=== PATIENT | female | born 1980 | race Caucasian/White ===

== ENCOUNTER 2017-02-06 19:16 | Emergency (ER) | payer MEDICAID, OTHER ==
--- NOTE | 2017-02-06 19:22 | EDPHY ---
H & P HPI/ROS: HPI CHIEF COMPLAINT: Abdominal pain HISTORY OF PRESENT ILLNESS: This patient very pleasant 36-year-old female, significant past medical history for asthma, she presents emergency room with abdominal pain approximately 10 hours ago she was running a trial run around 9: 00 a.m. she developed sudden onset of sharp stabbing lower abdominal pain. The pain is persisted throughout the day. It is worse with movement, also worse when she was riding over with bumps. No vomiting, no fever, no back pain no urinary symptoms. Not on a period. Denies . States the pain at times when she takes deep breath in hurts right upper quadrant radiates to right shoulder, also she has lower abdominal pain right lower quadrant periumbilical. States initially the pain started in the bilateral adnexa. Past Medical History: Asthma, IUD Past Surgical History: No recent surgical history Social History: Denies daily use of drugs alcohol tobacco products Family History: Noncontributory ROS REVIEW OF SYSTEMS: A comprehensive 10 point review of systems is otherwise negative aside from elements mentioned in the history of present illness. Exam Constitutional triage nursing summary reviewed, vital signs reviewed, awake/ alert. Eyes normal conjunctivae and sclera, EOMI, PERRLA. HENT normal inspection, atraumatic, moist mucus membranes, no epistaxis, neck supple/ no meningismus, no raccoon eyes. Respiratory clear to auscultation bilaterally, normal breath sounds, no respiratory distress, no wheezing. Cardiovascular rate normal, regular rhythm, no murmur, no edema, distal pulses normal. Gastrointestinal tender palpation periumbilical right lower quadrant as well as right upper quadrant, moderately tender, no peritoneal signs. Genitourinary no CVA tenderness. Musculoskeletal no midline vertebral tenderness, full range of motion, no calf swelling, no tenderness of extremities, no meningismus, good pulses, neurovascularly intact. Skin pink, warm, & dry, no rash, skin atraumatic. Neurologic awake, alert and oriented x 3, AAOx3, moves all 4 extremities equally, motor intact, sensory intact, CN II-XII intact, normal cerebellar, normal vision, normal speech. Psychiatric normal mood/affect. Heme/Lymph/Immune no lymphadenopathy. Differential diagnosis includes but is not limited to and in no particular order : Ruptured ovarian cyst, Bowel obstruction, appendicitis, gallbladder disease, diverticulitis, colitis, enteritis, perforated viscus, gastritis, GERD, esophagitis, urinary tract infection, pyelonephritis, kidney stones Medical Decision Making: Plan for this patient IV establishment full personal care aide, IV fluid bolus normal saline 1 L, IV Zofran for nausea, IV fentanyl for pain control, check blood work, urinalysis, test, patient need a CT abdomen pelvis with IV contrast. Re-evaluation: CT scan of the abdomen pelvis with IV contrast . The results of the study are this shows a right ovarian cyst with free fluid in the pelvis as well as fluid in Morison's pouch, up the right pericolic gutter. Concerning for ruptured ovarian cyst. . The study was read by Dr. Parnell. I viewed the images myself on the PACS system. 2155: Updated patient on her CT scan results. This does show a normal appendix. Shows most likely a right ruptured ovarian cyst recommend ultrasound of the pelvis pain. Plan is for pelvic ultrasound to further characterize the right ovarian cyst. 2233: Ultrasound of the pelvis The results of the study are good blood flow to both ovaries. Involuted cyst on the right 2.5 x 2.6 x 1.5. Free fluid present. Most likely recent ruptured ovarian cyst. . I discussed the results of this study with the radiologist Dr. Parnell 2234: Patient remains hemodynamically stable no acute distress. Resting comfortably. Abdomen soft but no peritoneal signs. Went over CT results ultrasound results and blood work with her. She has a ruptured right ovarian cyst. Free fluid in the pelvis. This been going on for over 12 hours. No large amount of the fluid. No evidence of significant hemoperitoneum. Hemodynamically stable H&H stable. Recommend rest, Mathews for acute pain control. No running for the next week. Return emergency room if she has worsening abdominal pain, bloating or questions or concerns. OBGYN follow-up as needed. Source: Patient - Medical/Surgical History Hx Asthma: Yes Other PMH: denies - Social History Smoking Status: Never smoked Constitutional: Initial Vital Signs Heart Rate 63 02/06/17 19:27 Respiratory Rate 16 02/06/17 19:27 Blood Pressure 127/75 H 02/06/17 19:27 O2 Sat (%) 98 02/06/17 19:27 O2 Delivery Mode Room Air Allergies/Adverse Reactions: No Known Allergies Allergy (Unverified 07/16/15 10:57) Home Medications: Medication Instructions Recorded Advair 100/50 (RX) 03/09/15 Singulair 03/09/15 Hydrocodone/APAP 5/325 [Mathews 1 - 2 tab PO Q4H PRN #10 tab 02/06/17 5/325] Medical Decision Making - Diagnostics Imaging Results: Imaging Impressions Abdomen CT 02/06/17 19:30 Impression: 1. Right ovarian cyst, measuring 3.4 x 2.5 cm, with a small amount of free fluid in the pelvis and in Morison's pouch. 2. No CT evidence of appendicitis, abscess, or bowel obstruction. 3. IUD appears in the uterus. 4. Recommend ultrasound pelvis. Findings and recommendations discussed with Emergency Department physician, Alejandro De La Torre M.D., at 2031 hours, on February 06, 2017. Final report concurs with initial preliminary interpretation. - Data Points Laboratory Results: Laboratory Results 02/06/17 19:38 02/06/17 19:38 02/06/17 02/06/17 02/06/17 19:38 19:38 19:38 WBC RBC Hgb Hct MCV MCH MCHC RDW Plt Count MPV Neut % (Auto) Lymph % (Auto) [place] % (Auto) Eos % (Auto) Baso % (Auto) Nucleat RBC Rel Count Absolute Neuts (auto) Absolute Lymphs (auto) Absolute Monos (auto) Absolute Eos (auto) Absolute Basos (auto) Absolute Nucleated RBC Immature Gran % Immature Gran # PT 13.8 SEC SEC (12.0-15.0) INR 1.09 (0.83-1.16) APTT 27.7 SEC SEC (23.0-38.0) VBG Lactic Acid Sodium 144 mEq/L mEq/L (134-144) Potassium 3.5 mEq/L mEq/L (3.5-5.2) Chloride 101 mEq/L mEq/L (97-110) Carbon Dioxide 25 mEq/l mEq/l (22-31) Anion Gap 18 mEq/L H mEq/L (8-16) BUN 10 mg/dL mg/dL (7-23) Creatinine 0.7 mg/dL mg/dL (0.6-1.0) Estimated GFR > 60 Glucose 86 mg/dL mg/dL (70-100) Calcium 9.2 mg/dL mg/dL (8.5-10.4) Total Bilirubin 0.8 mg/dL mg/dL (0.1-1.4) Conjugated Bilirubin 0.3 mg/dL mg/dL (0.0-0.5) Unconjugated Bilirubin 0.5 mg/dL mg/dL (0.0-1.1) AST 24 IU/L IU/L (14-46) ALT 28 IU/L IU/L (9-52) Alkaline Phosphatase 55 IU/L IU/L (38-126) Total Protein 7.7 g/dL g/dL (6.3-8.2) Albumin 4.7 g/dL g/dL (3.5-5.0) Lipase 79.0 IU/L IU/L (23-300) Beta HCG, Qual NEGATIVE Urine Color Urine Appearance Urine pH Ur Specific Kyle Urine Protein Urine Ketones Urine Blood Urine Nitrate Urine Bilirubin Urine Urobilinogen Ur Leukocyte Esterase Urine RBC Urine WBC Ur Epithelial Cells Urine Bacteria Urine Mucus Urine Glucose 02/06/17 02/06/17 02/06/17 19:38 19:38 19:32 WBC 11.84 10^3/uL H 10^3/uL (3.80-9.50) RBC 4.33 10^6/uL 10^6/uL (4.18-5.33) Hgb 13.9 g/dL g/dL (12.6-16.3) Hct 41.0 % % (38.0-47.0) MCV 94.7 fL fL (81.5-99.8) MCH 32.1 pg pg (27.9-34.1) MCHC 33.9 g/dL g/dL (32.4-36.7) RDW 12.9 % % (11.5-15.2) Plt Count 257 10^3/uL 10^3/uL (150-400) MPV 10.5 fL fL (8.7-11.7) Neut % (Auto) 67.6 % % (39.3-74.2) Lymph % (Auto) 24.8 % % (15.0-45.0) [place] % (Auto) 5.9 % % (4.5-13.0) Eos % (Auto) 1.1 % % (0.6-7.6) Baso % (Auto) 0.3 % % (0.3-1.7) Nucleat RBC Rel Count 0.0 % % (0.0-0.2) Absolute Neuts (auto) 8.01 10^3/uL H 10^3/uL (1.70-6.50) Absolute Lymphs (auto) 2.94 10^3/uL 10^3/uL (1.00-3.00) Absolute Monos (auto) 0.70 10^3/uL 10^3/uL (0.30-0.80) Absolute Eos (auto) 0.13 10^3/uL 10^3/uL (0.03-0.40) Absolute Basos (auto) 0.03 10^3/uL 10^3/uL (0.02-0.10) Absolute Nucleated RBC 0.00 10^3/uL 10^3/uL (0-0.01) Immature Gran % 0.3 % % (0.0-1.1) Immature Gran # 0.03 10^3/uL 10^3/uL (0.00-0.10) PT INR APTT VBG Lactic Acid 1.1 mmol/L mmol/L (0.7-2.1) Sodium Potassium Chloride Carbon Dioxide Anion Gap BUN Creatinine Estimated GFR Glucose Calcium Total Bilirubin Conjugated Bilirubin Unconjugated Bilirubin AST ALT Alkaline Phosphatase Total Protein Albumin Lipase Beta HCG, Qual Urine Color YELLOW Urine Appearance CLEAR Urine pH 5.5 (5.0-7.5) Ur Specific Kyle >= 1.030 (1.002-1.030) Urine Protein TRACE H (NEGATIVE) Urine Ketones NEGATIVE (NEGATIVE) Urine Blood NEGATIVE (NEGATIVE) Urine Nitrate NEGATIVE (NEGATIVE) Urine Bilirubin NEGATIVE (NEGATIVE) Urine Urobilinogen 0.2 EU EU (0.2-1.0) Ur Leukocyte Esterase NEGATIVE (NEGATIVE) Urine RBC 0-1 /hpf /hpf (0-3) Urine WBC 3-5 /hpf H /hpf (0-3) Ur Epithelial Cells 3+ /lpf H /lpf (NONE-1+) Urine Bacteria 2+ /hpf H /hpf (NONE SEEN) Urine Mucus 4+ /lpf H /lpf (NONE-1+) Urine Glucose NEGATIVE (NEGATIVE) Medications Given: Discontinued Medications Fentanyl (Sublimaze) 50 mcg IVP EDNOW ONE Stop: 02/06/17 19:30 Last Admin: 02/06/17 19:30 Dose: 50 mcg Sodium Chloride (Ns) 1,000 mls @ 0 mls/hr IV ONCE ONE; Wide Open PRN Reason: Protocol Stop: 02/06/17 19:30 Last Admin: 02/06/17 19:30 Dose: 1,000 mls Morphine Sulfate (Morphine) 4 mg IVP EDNOW ONE Stop: 02/06/17 21:39 Last Admin: 02/06/17 21:43 Dose: 4 mg Ondansetron HCl (Zofran) 4 mg IVP EDNOW ONE Stop: 02/06/17 19:30 Last Admin: 02/06/17 19:30 Dose: 4 mg Departure - Departure Disposition: Home, Routine, Self-Care Clinical Impression: Ovarian cyst Abdominal pain Qualifiers: Abdominal location: lower abdomen, unspecified Qualified Code(s): R10.30 - Lower abdominal pain, unspecified Condition: Good Instructions: Ovarian Cyst (ED), Ruptured Ovarian Cyst (ED) Additional Instructions: 1. Stay well-hydrated drink lots of fluids. 2. Return emergency room if develops worsening abdominal pain, abdominal bloating, fever, vomiting or you do not feel well. Referrals: NONE *PRIMARY CARE P,. [Primary Care Provider] - As per Instructions Ritu Cotton MD [Medical Doctor] - As per Instructions Prescriptions: Hydrocodone/APAP 5/325 [Mathews 5/325] 1 - 2 tab PO Q4H PRN #10 tab PRN Reason: Pain, Moderate
[2017-02-06 19:29] VITALS: RESP 16
[2017-02-06] MEDS ORDERED: fentaNYL 100 MCG/2 ML INJ IVP ONE (19:29)
[2017-02-06] MEDS ORDERED: ONDANSETRON 4 MG/2 ML VIAL IVP ONE (19:29)
[2017-02-06] MEDS ORDERED: NS 1,000 ML IV ONE (19:29)
[2017-02-06] MEDS ORDERED: IOPAMIDOL (ISOVUE-300) 100 ML BTL ONE (19:34)
[2017-02-06 19:43] LABS: COLOR YELLOW; LEUKOCYTE ESTERASE,URINE NEGATIVE (NEGATIVE); NITRITE,URINE NEGATIVE (NEGATIVE); PH,URINE 5.5 (5.0-7.5)
[2017-02-06 19:47] LABS: % IMMATURE GRANULYOCYTES 0.3 % (0.0-1.1); ABSOLUTE IMMATURE GRANULOCYTES 0.03 10^3/uL (0.00-0.10); ADD DIFF? NO; ADD MORPH? NO; ADD SCAN? NO; ATYPICAL LYMPHOCYTE FLAG 10 (0-99); FRAGMENT RBC FLAG 0 (0-99); HEMOGLOBIN 13.9 g/dL (12.6-16.3); LEFT SHIFT FLG 0 (0-99); LIPEMIA HEMOLYSIS FLAG 90 (0-99); MEAN CELL HEMOGLOBIN 32.1 pg (27.9-34.1); MEAN CELL HEMOGLOBIN CONCENTR. 33.9 g/dL (32.4-36.7); MEAN CELL VOLUME 94.7 fL (81.5-99.8); MEAN PLATELET VOLUME 10.5 fL (8.7-11.7); PLATELET CLUMPS FLAG 0 (0-99); PLATELET COUNT 257 10^3/uL (150-400); RED BLOOD CELL COUNT 4.33 10^6/uL (4.18-5.33); RED CELL DISTRIBUTION WIDTH 12.9 % (11.5-15.2)
[2017-02-06 19:56] LABS: BACTERIA 2+ /hpf (NONE SEEN); MUCUS 4+ /lpf (NONE-1+); RBC,URINE 0-1 /hpf (0-3)
[2017-02-06 20:03] LABS: INR 1.09 (0.83-1.16); PROTIME(PATIENT) 13.8 SEC (12.0-15.0)
[2017-02-06 20:04] LABS: APTT 27.7 SEC (23.0-38.0)
[2017-02-06 20:06] LABS: ALANINE AMINOTRANSFERASE 28 IU/L (9-52); ALBUMIN 4.7 g/dL (3.5-5.0); ALKALINE PHOSPHATASE 55 IU/L (38-126); ANION GAP 18 mEq/L (8-16); ASPARTATE AMINOTRANSFERASE 24 IU/L (14-46); BILIRUBIN,TOTAL 0.8 mg/dL (0.1-1.4); BILIRUBIN-CONJUGATED 0.3 mg/dL (0.0-0.5); BILIRUBIN-UNCONJUGATED 0.5 mg/dL (0.0-1.1); CALCIUM 9.2 mg/dL (8.5-10.4); CARBON DIOXIDE 25 mEq/l (22-31); CHLORIDE 101 mEq/L (97-110); CREATININE 0.7 mg/dL (0.6-1.0); GLOMERULAR FILTRATION RATE > 60; GLUCOSE 86 mg/dL (70-100); POTASSIUM 3.5 mEq/L (3.5-5.2); SODIUM 144 mEq/L (134-144); TOTAL PROTEIN 7.7 g/dL (6.3-8.2)
[2017-02-06] MEDS ORDERED: HYDROCOD/APAP 5/325 PREPACK#6 BTL TAKEHOME ONE (22:38)
[2017-02-06 22:40] VITALS: BP 100/61; PULSE 50; TEMP 98.2; O2SAT 98
== END 2017-02-06 22:45 | disposition home or self-care (01) ==
LOC: CED 19:16
DX: N83.201 Unspecified ovarian cyst, right side (principal); J45.909 Unspecified asthma, uncomplicated
CPT/HCPCS: 74177-PO; 76856-PO; 80048-PO; 80076-PO; 81003-PO; 81015-PO; 83605-PO; 83690-PO; 84703-PO; 85025-PO; 85610-PO; 85730-PO; 96374; J2405; J3010; Q9967